=== PATIENT | male | born 1970 | race Caucasian/White ===

== ENCOUNTER 2017-08-29 15:29 | Emergency (ER) | payer BC ==
[~2017-08-29] VITALS: Ht 177.8 cm; Wt 81.0 kg
[2017-08-29 15:32] VITALS: BP 140/76; PULSE 92; RESP 16; TEMP 97.5; O2SAT 98
[2017-08-29] MEDS ORDERED: SODIUM CHLOR 0.9% 1000 ML INJ 1,000 ML IV SCH (16:30)
[2017-08-29] MEDS ORDERED: LORazepam 2 MG/ML VIAL IV PUSH SCH (16:30)
--- NOTE | 2017-08-29 16:31 | PD ---
HPI . Cramping Chief Complaint: Abdominal Pain Time Seen by Provider: 16:26 Travel History International Travel<30 days: No Contact w/Intl Traveler<30days: No Traveled to known affect area: No History of Present Illness HPI This patient presents with a chief complaint of bilateral fine cramping. He states that it occurred while he was driving home from work at about 1:45 PM today. He states that his symptoms skin related over the course of approximately 5 minutes and then slowly improved over the course of another 5 minutes. He then developed abdominal pain associated with some nausea and vomiting. He states that his speech was slurred. He presented to an urgent care center. He states that he had a second episode of bilateral thigh cramping while there. They suggested that he present here for further evaluation. He is unaware of any modifiers. Specifically, he denies any usual heat exposure. He has not had any trauma. He has not had any excessive physical activity. He has had no change in medications. He does not take any medications which would alter electrolytes. He has no pain presently but states that the pain was severe at the apex of both episodes. FOR[facility]LY [facility] Past Medical History Medical History: Denies Significant Hx Hx Anticoagulant Therapy: No Diabetes: No Influenza Vaccination: No Past Surgical History Surgical History: No Previous Surgery Social History Alcohol Use: Yes (daily: 4 to 5 drinks) Tobacco Use: No Substance Use: No Allergies-Medications (Allergen,Severity, Reaction): Coded Allergies: No Known Allergies (Verified Allergy, Unknown, 08/29/17) Reported Meds & Prescriptions Reported Meds & Active Scripts Active No Active Prescriptions or Reported Medications Review of Systems Except as stated in HPI: all other systems reviewed are Neg General / Constitutional: No: Fever, Chills Gastrointestinal: Positive: Nausea, Vomiting, Abdominal Pain, No: Diarrhea Genitourinary: No: Urgency, Frequency, Dysuria Musculoskeletal: Positive: Myalgias Physical Exam Narrative GENERAL: Patient is awake and alert. SKIN: warm/dry. Normal color. HEAD: Normocephalic. Atraumatic. EYES: Pupils equal and round. No scleral icterus. No injection or drainage. ENT: No nasal bleeding or discharge. Mucous membranes pink and moist. NECK: Trachea midline. Full range of motion without pain.. CARDIOVASCULAR: Regular rate and rhythm. Heart sounds are normal. RESPIRATORY: No accessory muscle use. Clear to auscultation. Breath sounds equal bilaterally. GASTROINTESTINAL: Abdomen soft. Nontender. Bowel sounds present. Nondistended. MUSCULOSKELETAL: No obvious deformities. Muscles are nontender. NEUROLOGICAL: Awake and alert. No obvious cranial nerve deficits. Motor grossly within normal limits. Normal speech. PSYCHIATRIC: Anxious appearing. Hyperventilating at times. Data Data Last Documented VS Vital Signs Date Time Temp Pulse Resp B/P (MAP) Pulse Ox O2 Delivery O2 Flow Rate FiO2 08/29/17 16:39 88 16 145/79 (101) 96 Room Air 08/29/17 15:32 97.5 Orders Orders Sodium Chlor 0.9% 1000 Ml Inj (Ns 1000 M (08/29/17 16:30) Lorazepam Inj (Ativan Inj) (08/29/17 16:30) Basic Metabolic Panel (Bmp) (08/29/17 16:26) Magnesium (Mg) (08/29/17 16:26) Creatine Kinase (Cpk) (08/29/17 16:26) Labs Laboratory Tests Test 08/29/17 16:00 Blood Urea Nitrogen 13 MG/DL Creatinine 1.10 MG/DL Random Glucose 154 MG/DL Calcium Level 9.8 MG/DL Magnesium Level 1.5 MG/DL Sodium Level 137 MEQ/L Potassium Level 3.4 MEQ/L Chloride Level 101 MEQ/L Carbon Dioxide Level 21.2 MEQ/L Anion Gap 15 MEQ/L Estimat Glomerular Filtration Rate 71 ML/MIN Total Creatine Kinase 117 U/L MDM Medical Decision Making Medical Screen Exam Complete: Yes Emergency Medical Condition: Yes Differential Diagnosis Differential diagnosis includes but is not limited to viral syndrome, rhabdomyolysis, sepsis, overuse syndrome Narrative Course This patient presents with a couple of episodes of muscle spasms in his legs today. I will treat him with IV fluids and IV Ativan. BMP, magnesium and CK are pending. BMP Diagram 08/29/17 16:00 Calcium Level 9.8, Magnesium Level 1.5 Total CK is 117. I will give him a dose of oral potassium prior to discharge. Diagnosis Primary Impression: Muscle cramping Additional Impressions: Abdominal pain Qualified Codes: R10.84 - Generalized abdominal pain Nausea and vomiting Qualified Codes: R11.2 - Nausea with vomiting, unspecified Patient Instructions: Abdominal Pain (ED), Acute Nausea and Vomiting (DC), General Instructions, Hypokalemia (DC), Leg Cramps (ED) Med/Other Pt SpecificInfo: Prescription(s) given Scripts Cyclobenzaprine (Flexeril) 10 Mg Tab 10 MG PO TID for Muscle Spasm, #90 TAB 0 Refills Prov: Maureen Conway MD 08/29/17 Disposition: 01 DISCHARGE HOME Condition: Stable Maureen Conway MD Aug 29, 2017 16:31
[2017-08-29 16:39] VITALS: BP 145/79; PULSE 88; RESP 16; O2SAT 96
[2017-08-29 16:52] LABS: CALCIUM 9.8 MG/DL (8.5-10.1)
[2017-08-29 16:53] LABS: BICARBONATE 21.2 MEQ/L (21.0-32.0); MAGNESIUM 1.5 MG/DL (1.5-2.5)
[2017-08-29 16:56] LABS: CREATININE 1.1 MG/DL (0.60-1.30)
[2017-08-29] MEDS ORDERED: CYCL1TAB29 PO (17:33)
[2017-08-29] MEDS ORDERED: POTASSIUM CHLORIDE 20 MEQ CONTROLLED RELEASE TAB PO ONE (17:45)
[2017-08-29 17:52] VITALS: BP 149/83; PULSE 72; RESP 16; O2SAT 98
== END 2017-08-29 18:01 | disposition home or self-care (01) ==
LOC: PHED 15:29
DX: R25.2 Cramp and spasm (principal); R10.84 Generalized abdominal pain; R11.2 Nausea with vomiting, unspecified; R47.81 Slurred speech
CPT/HCPCS: 80048; 82550; 83735; 96361; 96374; 99284; J2060; J7030